=== PATIENT | female | born 1955 | race Caucasian/White ===

== ENCOUNTER 2020-06-15 12:17 | Inpatient (IN) ==
--- NOTE | 2020-06-15 12:49 | RAD ---
HISTORYCOVID +STUDYCHEST, PA/LAT ADULTCOMPARISONNoneTECHNIQUE2 views of the chestFINDINGSCardiac and mediastinal contours are within normal limits. Moderate bilateral hazy and interstitial pulmonary opacities. No definite pleural effusion or pneumothorax.IMPRESSIONBilateral hazy and interstitial pulmonary opacities consistent with COVID 19.Electronically signed by: Ryan Nichols (Jun 15, 2020 12:47:59)
[2020-06-15] MEDS ORDERED: REMDESIVIR 200 MG in NS 250 ML IV 250 ML IV ONE (14:02)
[2020-06-15 14:42] VITALS: BMI 35.5
[2020-06-15 14:48] LABS: BASOPHILS % (AUTO) 0.1 % (0.2-1.0); HEMATOCRIT 41.2 % (36.0-47.0); HEMOGLOBIN 13.8 g/dL (12.0-16.0); LYMPHOCYTES # (AUTO) 1.1 X10^3/uL (1.3-2.9); MEAN CORPUSCULAR HEMOGLOBIN 28.5 pg (27.0-34.0); MEAN CORPUSCULAR HGB CONC 33.5 g/dL (33.0-35.0); MEAN CORPUSCULAR VOLUME 84.9 fL (80.0-100.0); MEAN PLATELET VOLUME 10.1 fL (7.4-11.0); MONOCYTES # (AUTO) 0.4 x10^3/uL (0.3-0.8); MONOCYTES % (AUTO) 7.7 % (0.0-13.0); NEUTROPHILS # (AUTO) 3.7 x10^3/uL (2.2-4.8); NEUTROPHILS % (AUTO) 71.2 % (42.0-75.0); PLATELET COUNT 129 X10^3/uL (150.0-450.0); RED BLOOD COUNT 4.85 X10^6/uL (3.5-5.4); RED CELL DISTRIBUTION WIDTH 13.5 % (11.6-16.5); WHITE BLOOD COUNT 5.1 X10^3/uL (3.6-10.0)
[2020-06-15 14:58] LABS: ABG BASE EXCESS 0.3 mmol/L (-2.0-2.0); ABG HCO3 22.9 mmol/L (22-26)
[2020-06-15 15:00] LABS: ALANINE AMINOTRANSFERASE 53 Units/L (12-78); ALBUMIN 3.2 g/dL (3.4-5.0); ALKALINE PHOSPHATASE 78 Units/L (46-116); ASPARTATE AMINO TRANSFERASE 60 Units/L (15-37); BLOOD UREA NITROGEN 9 mg/dL (7-18); CALCIUM 9.2 mg/dL (8.5-10.1); CHLORIDE 100 mmol/L (98-107); COR CA(FOR HYPOALB) 9.8 mg/dL (8.5-10.1); COR NA(FOR HYPERGLY) 135 mmol/L (136-145); CREATININE 0.84 mg/dL (0.55-1.02); SODIUM 135 mmol/L (136-145); TROPONIN I < 0.02 ng/mL (0-1.5); eGFR NON BLACK RACES > 60 (>60)
[2020-06-15] MEDS ORDERED: PHARMACY CONSULT - IVERMECTIN XX SCH (15:00)
[2020-06-15 15:22] LABS: PLATELET MORPHOLOGY COMMENT NORMAL (NORMAL)
[2020-06-15] MEDS ORDERED: BENADRYL CAP/TAB 25 MG PO ONE (15:30)
[2020-06-15] MEDS: NS 1000 ML 1,000 ML IV SCH (15:55)
[2020-06-15] MEDS: TRICOR TAB 160 MG PO SCH (15:55)
[2020-06-15] MEDS: ASCORBIC ACID INJ MULTI-DOSE VIAL 1,500 MG in NS 100 ML IV 100 ML IV SCH ×2 (15:55→23:06)
[2020-06-15] MEDS: SOLU-Medrol 125 MG VIAL IVP SCH ×2 (15:55→23:07)
[2020-06-15] MEDS: VITAMIN D3 125 mcg (5,000 UNITS) PO SCH (15:55)
--- NOTE | 2020-06-15 16:28 | DR.H&P ---
H&P History & Physical for Day of: H&P Date: 06/15/20 Chief Complaint Chief Complaint: Shortness of breath Generalized weakness, fever, loss of appetite Allergies Allergies Allergy/AdvReac Type Severity Reaction Status Date / Time MS Iodide [Iodide] Allergy Mild Verified 06/15/20 16:57 MS Iodine [Iodine] Allergy Verified 06/15/20 16:14 History of Present Illness History of Present Illness: Pt is a 64 year old female with no past medical history admitted directly from clinic for COVID-19 pneumonia, hypoxia, and dehydration. Pt states that symptoms started last and progressively worsened over the weekend. Pt reports cough, tired, fatigued, headaches, no appetite, chills fever, and body aches. She has been so fatigued has been in the bed and has had very little to eat but has tried to hydrate with OTC Bio Lyte, Sprite, clear fluids, but has had very little solid food and no appetite. Labs/imaging:COVID-19 positive, Wbc 5.1, Hgb 13.8, Plt 129, Na 135, K 3.3, Cr 0.84, Glucose 117, AST 60, ALT 53, ALKP 78, CRP 90, D-dimer 0.70, Troponin nega tive, EKG: Sinus tachycardia ,ABG:PH 7.49, PC02 30, P02 62, HC03 22, 02 SAT 93, FI02 21%. Will start patient on treatment course includes: Remdesivir, Solumedrol 80mg q8h, Bronchodilators, immune supporting supplements, supplemental O2, I/S, Respiratory therapy consult, Pneumonia protocol. Pt requir ing 2L nasal cannula supplemental oxygen. Elevated d-dimer, will get CTA chest to evaluate for pulmonary embolism. Time spent on clinical assessment, reviewing labs and imaging, decision making, and documentation greater than 75 minutes. Past Medical History Past Medical History: GERD, Kidney Stones and PUD Past Surgical History Surgical History: Cholecystectomy, Hysterectomy and Other Family History Family Medical History: Diabetes Mellitus and Heart Failure Social History Does patient currently use any type of tobacco product: No Have you used tobacco products in the last 12 months: No Type of Tobacco Use: None Alcohol Use: None Medications Home Medications: MS Iodide [Iodide] Allergy (Unknown, Verified 06/15/20 16:14) MS Iodine [Iodine] Allergy (Verified 06/15/20 16:14) CONTINUE taking the following medications NK 06/15/20 [History] Labs Result Diagrams: 06/16/20 04:15 06/16/20 04:15 Labs: Laboratory WBC 5.1 X10^3/uL (3.6-10.0) 06/15/20 14:28 RBC 4.85 X10^6/uL (3.5-5.4) 06/15/20 14:28 Hgb 13.8 g/dL (12.0-16.0) 06/15/20 14:28 Hct 41.2 % (36.0-47.0) 06/15/20 14:28 MCV 84.9 fL (80.0-100.0) 06/15/20 14: MCH 28.5 pg (27.0-34.0) 06/15/20 14: MCHC 33.5 g/dL (33.0-35.0) 06/15/20 14: RDW 13.5 % (11.6-16.5) 06/15/20 14:28 Plt Count 129 X10^3/uL (150.0-450.0) L 06/15/20 14:28 Plt Count Comment Decreased (ADEQUATE) A 06/15/20 14: MPV 10.1 fL (7.4-11.0) 06/15/20 14:28 Neut % (Auto) 71.2 % (42.0-75.0) 06/15/20 14: Lymph % (Auto) 21.0 % (21.0-51.0) 06/15/20 14:28 [place] % (Auto) 7.7 % (0.0-13.0) 06/15/20 14:28 Eos % (Auto) 0.0 % (0.9-2.9) L 06/15/20 14:28 Baso % (Auto) 0.1 % (0.2-1.0) L 06/15/20 14:28 Neut # (Auto) 3.7 x10^3/uL (2.2-4.8) 06/15/20 14:28 Lymph # (Auto) 1.1 X10^3/uL (1.3-2.9) L 06/15/20 14:28 [place] # (Auto) 0.4 x10^3/uL (0.3-0.8) 06/15/20 14:28 Eos # (Auto) 0.0 x10^3/uL (0.0-0.2) 06/15/20 14:28 Baso # (Auto) 0.0 X10^3/uL (0.0-0.1) 06/15/20 14:28 Absolute Nucleated RBC 0.1 /100WBC 06/15/20 14:28 Plt Morphology Comment Normal (NORMAL) 06/15/20 14:28 RBC Morphology Normal (NORMAL) 06/15/20 14:28 D-Dimer 0.70 ug/ml (0.0-0.57) H* 06/15/20 14:28 Sample Site Lb 06/15/20 14:53 ABG pH 7.490 (7.35-7.45) H 06/15/20 14:53 ABG pCO2 30.0 mmHg (35.0-45.0) L 06/15/20 14:53 ABG pO2 62.0 mmHg (80.0-100.0) L 06/15/20 14:53 ABG HCO3 22.9 mmol/L (22-26) 06/15/20 14:53 ABG O2 Saturation 93.0 % (90-100) 06/15/20 14:53 ABG Base Excess 0.3 mmol/L (-2.0-2.0) 06/15/20 14:53 Partha Test Na 06/15/20 14:53 A-a Gradient 50.0 mmHg 06/15/20 14:53 FiO2 21.0 06/15/20 14:53 Blood Gas Comments Dayana well/gmb/ahw 06/15/20 14:53 Sodium 135 mmol/L (136-145) L 06/15/20 14:28 Corrected Sodium 135 mmol/L (136-145) L 06/15/20 14:28 Potassium 3.3 mmol/L (3.5-5.1) L 06/15/20 14:28 Chloride 100 mmol/L (98-107) 06/15/20 14:28 Carbon Dioxide 25.0 mmol/L (21-32) 06/15/20 14:28 BUN 9 mg/dL (7-18) 06/15/20 14:28 Creatinine 0.84 mg/dL (0.55-1.02) 06/15/20 14:28 Est GFR (MDRD) Af Amer > 60 (>60) 06/15/20 14:28 Est GFR (MDRD) Non-Af > 60 (>60) 06/15/20 14:28 Glucose 117 mg/dL (65-99) H 06/15/20 14:28 Calcium 9.2 mg/dL (8.5-10.1) 06/15/20 14:28 Corrected Calcium 9.8 mg/dL (8.5-10.1) 06/15/20 14:28 Total Bilirubin 0.40 mg/dL (0.2-1.0) 06/15/20 14:28 AST 60 Units/L (15-37) H 06/15/20 14:28 ALT 53 Units/L (12-78) 06/15/20 14:28 Alkaline Phosphatase 78 Units/L (46-116) 06/15/20 14:28 Troponin I < 0.02 ng/mL (0-1.5) 06/15/20 14:28 C-Reactive Protein 90.30 mg/L (0-3.0) H 06/15/20 14:28 Total Protein 8.0 g/dL (6.4-8.2) 06/15/20 14:28 Albumin 3.2 g/dL (3.4-5.0) L 06/15/20 14:28 Globulin 4.8 g/dL (2.5-4.5) H 06/15/20 14:28 Albumin/Globulin Ratio 0.7 Ratio (1.1-2.1) L 06/15/20 14:28 SARS CoV-2 RNA Rapid RENNY Positive (NEGATIVE) A 06/15/20 11:48 Review of Systems Constitutional: Fever, Chills and Weakness Eyes: No Symptoms Reported ENT: No Symptoms Reported Respiratory: Cough and Shortness of Breath Cardiovascular: No Symptoms Reported Gastrointestinal: No Symptoms Reported Genitourinary: No Symptoms Reported Musculoskeletal: No Symptoms Reported Skin: No Symptoms Reported Neurological: No Symptoms Reported Physical Exam Vital Signs: Temperature 98.7 F Pulse Rate [Apical] 99 Pulse Rate 106 Respiratory Rate 28 Blood Pressure [Right Arm] 122/77 Blood Pressure [Left Arm] 128/60 Blood Pressure 124/59 O2 Sat by Pulse Oximetry 92 Oriented: Normal Eyes: Normal Ear: Normal Nose: Normal Throat: Normal Respiratory: Diminished Throughout, RLL Rhonchi and LLL Rhonchi Cardiovascular: Normal : Normal Auscultation: Bowel Sounds: Normal Palpation: Normal Tenderness: Normal Skin: Normal Musculoskeletal: Normal Psychiatric: Normal Mood Description: Calm and Appropriate Affect: Normal Speech Pattern: Clear and Appropriate Assessment/Plan (1) Pneumonia due to COVID-19 virus: Status: Acute Plan: IVF, Remdesivir, Solumedrol, Bronchodilators, supplemental O2. (2) Dehydration: Status: Acute Review H&P Reviewed: Yes Patient was examined?: Yes
[2020-06-15] MEDS ORDERED: NS 100 ML IV 100 ML IV ONE (16:39)
[2020-06-15] MEDS ORDERED: DUONEB 0.5 MG/3 MG (3 mL) NEB ONE (16:51)
[2020-06-15] MEDS: DUONEB 0.5 MG/3 MG (3 mL) NEB SCH (17:04)
[2020-06-15] MEDS ORDERED: MELATONIN PO SCH (21:00)
[2020-06-15] MEDS: PULMICORT NEB TX 0.5 MG NEB SCH (21:21)
[2020-06-15] MEDS: ZINC SULFATE PO SCH (21:40)
[2020-06-15] MEDS: LOVENOX INJ 30 MG SYR SC SCH (21:40)
[2020-06-15] MEDS ORDERED: MELATONIN PO PRN (21:56)
[2020-06-16] MEDS: DUONEB 0.5 MG/3 MG (3 mL) NEB SCH ×4 (00:40→16:30)
[2020-06-16 05:05] LABS: BASOPHILS % (AUTO) 0.1 % (0.2-1.0); LYMPHOCYTES # (AUTO) 0.3 X10^3/uL (1.3-2.9); LYMPHOCYTES % (AUTO) 13.5 % (21.0-51.0); MEAN CORPUSCULAR HEMOGLOBIN 28.3 pg (27.0-34.0); MEAN CORPUSCULAR HGB CONC 33.4 g/dL (33.0-35.0); MEAN CORPUSCULAR VOLUME 84.8 fL (80.0-100.0); MEAN PLATELET VOLUME 10.5 fL (7.4-11.0); MONOCYTES # (AUTO) 0.2 x10^3/uL (0.3-0.8); MONOCYTES % (AUTO) 11.3 % (0.0-13.0); NEUTROPHILS # (AUTO) 1.6 x10^3/uL (2.2-4.8); NEUTROPHILS % (AUTO) 75.1 % (42.0-75.0); PLATELET COUNT 121 X10^3/uL (150.0-450.0); RED BLOOD COUNT 4.59 X10^6/uL (3.5-5.4); RED CELL DISTRIBUTION WIDTH 13.1 % (11.6-16.5); WHITE BLOOD COUNT 2.1 X10^3/uL (3.6-10.0)
[2020-06-16 05:12] LABS: ALANINE AMINOTRANSFERASE 53 Units/L (12-78); ALBUMIN 2.8 g/dL (3.4-5.0); ALKALINE PHOSPHATASE 72 Units/L (46-116); ASPARTATE AMINO TRANSFERASE 57 Units/L (15-37); BLOOD UREA NITROGEN 8 mg/dL (7-18); CALCIUM 8.9 mg/dL (8.5-10.1); CARBON DIOXIDE 22.1 mmol/L (21-32); CHLORIDE 103 mmol/L (98-107); COR CA(FOR HYPOALB) 9.9 mg/dL (8.5-10.1); COR NA(FOR HYPERGLY) 141 mmol/L (136-145); CREATININE 0.83 mg/dL (0.55-1.02); SODIUM 138 mmol/L (136-145); TOTAL PROTEIN 7.6 g/dL (6.4-8.2); eGFR NON BLACK RACES > 60 (>60)
[2020-06-16 05:42] LABS: GIANT PLATELET MODERATE; PLATELET MORPHOLOGY COMMENT ABNORMAL (NORMAL)
[2020-06-16] MEDS: ASCORBIC ACID INJ MULTI-DOSE VIAL 1,500 MG in NS 100 ML IV 100 ML IV SCH ×4 (06:35→21:41)
[2020-06-16] MEDS: SOLU-Medrol 125 MG VIAL IVP SCH ×3 (06:35→21:39)
[2020-06-16] MEDS: PULMICORT NEB TX 0.5 MG NEB SCH ×2 (08:05→20:10)
[2020-06-16] MEDS ORDERED: POTASSIUM CHL 60 MEQ/NS 0.45% 500 ML IV PRN (08:25)
[2020-06-16] MEDS ORDERED: MICRO K EXTEN CAP 10 MEQ PO PRN (08:25)
[2020-06-16] MEDS ORDERED: POTASSIUM CHLORIDE LIQ 20 MEQ UDC PO PRN (08:25)
[2020-06-16] MEDS ORDERED: POTASSIUM CHL 40 MEQ/NS 0.45% 500 ML IV PRN (08:25)
[2020-06-16] MEDS ORDERED: K-RIDER 10 MEQ/NS 100 ML 10 MEQ/100 ML BAG IV PRN (08:25)
[2020-06-16] MEDS ORDERED: KLOR-CON PO PRN (08:25)
[2020-06-16] MEDS: VITAMIN D3 125 mcg (5,000 UNITS) PO SCH (08:55)
[2020-06-16] MEDS: TRICOR TAB 160 MG PO SCH (08:55)
[2020-06-16] MEDS: LOVENOX INJ 30 MG SYR SC SCH ×2 (08:55→21:42)
[2020-06-16] MEDS: K-DUR TAB 20 MEQ PO PRN ×2 (08:55→21:45)
[2020-06-16] MEDS: ZINC SULFATE PO SCH ×2 (08:55→21:45)
[2020-06-16] MEDS ORDERED: TRICOR TAB 160 MG PO SCH (09:00)
[2020-06-16] MEDS: IVERMECTIN PO SCH (09:04)
--- NOTE | 2020-06-16 10:12 | PCM.PROG ---
Progress Note Progress Note for Day of Date of Exam: 06/16/20 Subjective Subjective: Pt is a 64 year old female with no past medical history admitted for COVID-19 pneumonia (positive 06/15) and hypoxia. This morning patient reports some improvement in appetite, she is sitting on bed eating breakfast. Labs/imaging: Wbc 2.1, Hgb 13, Plt 121, Na 141, K 3.3, Cr 0.83, Glucose 212, AST 57, ALT 53, ALKP 72, CRP 90>84, Treatment course includes: Remdesivir, Solumedrol 80mg q8h, Tricor, Bronchodilators, immune supporting supplements, supplemental O2, I/S, Respiratory therapy consult, Pneumonia protocol. Pt is requiring 2L nasal cannula supplemental oxygen. Overnight patient lost IV access and difficulty obtaining access. Will get PICC line placed today and is still scheduled to get CTA chest to evaluate for pulmonary embolism due to hypoxia and elevated D-dimer. Hypokalemia on labs, will replete per protocol. Otherwise continue current plan of care. Monitor and follow up labs/imaging in the morning. Past Medical Family Social History Past Med/Fam/Surg Hx: No changes since H&P Allergies: Allergies MS Iodide [Iodide] Allergy (Mild, Verified 06/15/20 16:57) MS Iodine [Iodine] Allergy (Verified 06/15/20 16:14) Review of Systems ROS: No change since H&P Vital Signs and I&O's Vital Signs: Temperature 98.4 F Pulse Rate [Apical] 106 Pulse Rate 89 Respiratory Rate 32 Blood Pressure [Right Arm] 124/70 Blood Pressure [Left Arm] 108/64 Blood Pressure 124/59 O2 Sat by Pulse Oximetry 90 Intake and Output: Intake & Output 06/13/20 06/14/20 06/15/20 06/16/20 23:59 23:59 23:59 23:59 Intake Total 963 / 963 310 / 310 Balance 963 / 963 310 / 310 Physical Exam Oriented: Normal Eyes: Normal Ear: Normal Nose: Normal Throat: Normal Respiratory: Diminished Cardiovascular: Normal : Normal Auscultation: Bowel Sounds: Normal Tenderness: Normal Skin: Normal Musculoskeletal: Normal Psychiatric: Normal Mood Description: Calm and Appropriate Affect: Normal Speech Pattern: Clear and Appropriate Laboratory and Diagnostics Result Diagrams: 06/16/20 04:15 06/16/20 04:15 Labs: Laboratory WBC 2.1 X10^3/uL (3.6-10.0) L 06/16/20 04:15 RBC 4.59 X10^6/uL (3.5-5.4) 06/16/20 04:15 Hgb 13.0 g/dL (12.0-16.0) 06/16/20 04:15 Hct 39.0 % (36.0-47.0) 06/16/20 04:15 MCV 84.8 fL (80.0-100.0) 06/16/20 04:15 MCH 28.3 pg (27.0-34.0) 06/16/20 04:15 MCHC 33.4 g/dL (33.0-35.0) 06/16/20 04:15 RDW 13.1 % (11.6-16.5) 06/16/20 04:15 Plt Count 121 X10^3/uL (150.0-450.0) L 06/16/20 04:15 Plt Count Comment Decreased (ADEQUATE) A 06/16/20 04:15 MPV 10.5 fL (7.4-11.0) 06/16/20 04:15 Neut % (Auto) 75.1 % (42.0-75.0) H 06/16/20 04:15 Lymph % (Auto) 13.5 % (21.0-51.0) L 06/16/20 04:15 [place] % (Auto) 11.3 % (0.0-13.0) 06/16/20 04:15 Eos % (Auto) 0.0 % (0.9-2.9) L 06/16/20 04:15 Baso % (Auto) 0.1 % (0.2-1.0) L 06/16/20 04:15 Neut # (Auto) 1.6 x10^3/uL (2.2-4.8) L 06/16/20 04:15 Lymph # (Auto) 0.3 X10^3/uL (1.3-2.9) L 06/16/20 04:15 [place] # (Auto) 0.2 x10^3/uL (0.3-0.8) L 06/16/20 04:15 Eos # (Auto) 0.0 x10^3/uL (0.0-0.2) 06/16/20 04:15 Baso # (Auto) 0.0 X10^3/uL (0.0-0.1) 06/16/20 04:15 Absolute Nucleated RBC 0.1 /100WBC 06/16/20 04:15 Total Counted 50 06/16/20 04:15 Neutrophils % (Manual) 42 % (39-76) 06/16/20 04:15 Lymphocytes % (Manual) 4 % (13-43) L 06/16/20 04:15 Monocytes % (Manual) 4 % (4-9) 06/16/20 04:15 Giant Platelets Moderate 06/16/20 04:15 Plt Morphology Comment Abnormal (NORMAL) A 06/16/20 04:15 RBC Morphology Normal (NORMAL) 06/16/20 04:15 D-Dimer 0.70 ug/ml (0.0-0.57) H* 06/15/20 14:28 Sample Site Lb 06/15/20 14:53 ABG pH 7.490 (7.35-7.45) H 06/15/20 14:53 ABG pCO2 30.0 mmHg (35.0-45.0) L 06/15/20 14:53 ABG pO2 62.0 mmHg (80.0-100.0) L 06/15/20 14:53 ABG HCO3 22.9 mmol/L (22-26) 06/15/20 14:53 ABG O2 Saturation 93.0 % (90-100) 06/15/20 14:53 ABG Base Excess 0.3 mmol/L (-2.0-2.0) 06/15/20 14:53 Partha Test Na 06/15/20 14:53 A-a Gradient 50.0 mmHg 06/15/20 14:53 FiO2 21.0 06/15/20 14:53 Blood Gas Comments Dayana well/gmb/ahw 06/15/20 14:53 Sodium 138 mmol/L (136-145) 06/16/20 04:15 Corrected Sodium 141 mmol/L (136-145) 06/16/20 04:15 Potassium 3.3 mmol/L (3.5-5.1) L 06/16/20 04:15 Chloride 103 mmol/L (98-107) 06/16/20 04:15 Carbon Dioxide 22.1 mmol/L (21-32) 06/16/20 04:15 BUN 8 mg/dL (7-18) 06/16/20 04:15 Creatinine 0.83 mg/dL (0.55-1.02) 06/16/20 04:15 Est GFR (MDRD) Af Amer > 60 (>60) 06/16/20 04:15 Est GFR (MDRD) Non-Af > 60 (>60) 06/16/20 04:15 Glucose 212 mg/dL (65-99) H 06/16/20 04:15 Calcium 8.9 mg/dL (8.5-10.1) 06/16/20 04:15 Corrected Calcium 9.9 mg/dL (8.5-10.1) 06/16/20 04:15 Magnesium 2.0 mg/dL (1.7-2.9) 06/16/20 04:15 Total Bilirubin 0.30 mg/dL (0.2-1.0) 06/16/20 04:15 AST 57 Units/L (15-37) H 06/16/20 04:15 ALT 53 Units/L (12-78) 06/16/20 04:15 Alkaline Phosphatase 72 Units/L (46-116) 06/16/20 04:15 Troponin I < 0.02 ng/mL (0-1.5) 06/15/20 14:28 C-Reactive Protein 84.40 mg/L (0-3.0) H 06/16/20 04:15 Total Protein 7.6 g/dL (6.4-8.2) 06/16/20 04:15 Albumin 2.8 g/dL (3.4-5.0) L 06/16/20 04:15 Globulin 4.8 g/dL (2.5-4.5) H 06/16/20 04:15 Albumin/Globulin Ratio 0.6 Ratio (1.1-2.1) L 06/16/20 04:15 SARS CoV-2 RNA Rapid RENNY Positive (NEGATIVE) A 06/15/20 11:48 Plan (1) Pneumonia due to COVID-19 virus: Status: Acute Plan: IVF, Remdesivir, Solumedrol, Bronchodilators, supplemental O2. (2) Dehydration: Status: Acute
[2020-06-16] MEDS ORDERED: ATIVAN TAB 0.5 MG PO PRN (10:38)
[2020-06-16] MEDS ORDERED: VERSED ONE (11:00)
[2020-06-16] MEDS ORDERED: VERSED IM ONE (11:04)
[2020-06-16] MEDS ORDERED: XYLOCAINE 1 % (PLAIN) ONE (11:26)
[2020-06-16] MEDS ORDERED: BENADRYL INJ 50 MG VIAL ONE (12:00)
[2020-06-16] MEDS ORDERED: BENADRYL INJ 50 MG VIAL IVP ONE (12:04)
--- NOTE | 2020-06-16 12:15 | RAD ---
HISTORYCENTRAL LINE PLACEMENTSTUDYCHEST, 1 [id number]/2021FINDINGSRight jugular central venous catheter is in the expected location of the superior vena cava.No pneumothorax is present. Abnormal opacity in the lungs could be pneumonia, unchanged from yesterday.Heart size is normal.Bones are unremarkable.EKG leads are noted.IMPRESSION1. Uncomplicated line placementElectronically signed by: López Smith (Jun 16, 2020 12:14:17)
--- NOTE | 2020-06-16 12:48 | CT ---
HISTORYELEVATED D-DIMERSTUDYCTA CHESTCOMPARISONChest radiograph from same day.TECHNIQUECTA chest protocol with axial images from the thoracic inlet to upper abdomen with IV contrast. Sagittal and coronal reformats and MIP images were created. Automated exposure control was utilized.FINDINGSSubcentimeter low-attenuation right thyroid nodule. Mildly atherosclerotic normal caliber thoracic aorta. Pulmonary artery is normal in caliber centrally. No filling defect is identified to suggest pulmonary embolism. The heart is normal in size. No pericardial effusion. Mild coronary artery disease. No pathologic adenopathy in the thorax. Right IJ central line terminates in the SVC. Post cholecystectomy. Hepatic steatosis. No acute osseous abnormality. Trachea and mainstem bronchi appear patent. Moderate bilateral ground-glass and interstitial opacities throughout both lungs. No pleural effusion or pneumothorax.IMPRESSIONNegative for PE.Moderate ground-glass and interstitial opacities throughout both lungs consistent with COVID 19 pneumonia.Electronically signed by: Ryan Nichols (Jun 16, 2020 12:46:36)
[2020-06-16] MEDS: REMDESIVIR 100 MG in NS 250 ML IV 250 ML IV SCH (13:07)
[2020-06-16] MEDS: VIBRAMYCIN PO SCH ×2 (13:07→21:44)
[2020-06-16] MEDS: NS 1000 ML 1,000 ML IV SCH (17:28)
[2020-06-17] MEDS: DUONEB 0.5 MG/3 MG (3 mL) NEB SCH ×5 (00:15→16:25)
[2020-06-17] MEDS: ASCORBIC ACID INJ MULTI-DOSE VIAL 1,500 MG in NS 100 ML IV 100 ML IV SCH ×4 (04:03→21:00)
[2020-06-17 05:20] LABS: BASOPHILS # (AUTO) 0.1 X10^3/uL (0.0-0.1); BASOPHILS % (AUTO) 1.4 % (0.2-1.0); EOSINOPHILS % (AUTO) 0.2 % (0.9-2.9); HEMATOCRIT 36.6 % (36.0-47.0); HEMOGLOBIN 12.2 g/dL (12.0-16.0); LYMPHOCYTES # (AUTO) 0.2 X10^3/uL (1.3-2.9); LYMPHOCYTES % (AUTO) 4.4 % (21.0-51.0); MEAN CORPUSCULAR HEMOGLOBIN 28.4 pg (27.0-34.0); MEAN CORPUSCULAR HGB CONC 33.4 g/dL (33.0-35.0); MEAN CORPUSCULAR VOLUME 85.1 fL (80.0-100.0); MEAN PLATELET VOLUME 10.5 fL (7.4-11.0); MONOCYTES # (AUTO) 0.2 x10^3/uL (0.3-0.8); MONOCYTES % (AUTO) 5.5 % (0.0-13.0); NEUTROPHILS # (AUTO) 3.7 x10^3/uL (2.2-4.8); NEUTROPHILS % (AUTO) 88.5 % (42.0-75.0); PLATELET COUNT 136 X10^3/uL (150.0-450.0); RED BLOOD COUNT 4.31 X10^6/uL (3.5-5.4); RED CELL DISTRIBUTION WIDTH 13.3 % (11.6-16.5); WHITE BLOOD COUNT 4.2 X10^3/uL (3.6-10.0)
[2020-06-17 05:28] LABS: ALANINE AMINOTRANSFERASE 49 Units/L (12-78); ALBUMIN 2.6 g/dL (3.4-5.0); ALKALINE PHOSPHATASE 64 Units/L (46-116); ASPARTATE AMINO TRANSFERASE 40 Units/L (15-37); BLOOD UREA NITROGEN 13 mg/dL (7-18); CALCIUM 8.8 mg/dL (8.5-10.1); CARBON DIOXIDE 21.2 mmol/L (21-32); CHLORIDE 108 mmol/L (98-107); COR CA(FOR HYPOALB) 9.9 mg/dL (8.5-10.1); COR NA(FOR HYPERGLY) 146 mmol/L (136-145); CREATININE 0.89 mg/dL (0.55-1.02); SODIUM 143 mmol/L (136-145); TOTAL PROTEIN 6.7 g/dL (6.4-8.2); eGFR NON BLACK RACES > 60 (>60)
[2020-06-17 05:38] LABS: GIANT PLATELET FEW; PLATELET MORPHOLOGY COMMENT ABNORMAL (NORMAL)
[2020-06-17] MEDS: SOLU-Medrol 125 MG VIAL IVP SCH ×3 (06:15→21:00)
[2020-06-17] MEDS: PULMICORT NEB TX 0.5 MG NEB SCH ×2 (07:45→21:21)
[2020-06-17] MEDS: LOVENOX INJ 30 MG SYR SC SCH ×2 (08:12→21:00)
[2020-06-17] MEDS: IVERMECTIN PO SCH (08:12)
[2020-06-17] MEDS: REMDESIVIR 100 MG in NS 250 ML IV 250 ML IV SCH (08:12)
[2020-06-17] MEDS: TRICOR TAB 160 MG PO SCH (08:13)
[2020-06-17] MEDS ORDERED: VITAMIN D3 125 mcg (5,000 UNITS) PO SCH (09:00)
[2020-06-17] MEDS: VIBRAMYCIN PO SCH ×2 (09:19→21:00)
[2020-06-17] MEDS: VITAMIN A PO SCH (09:19)
[2020-06-17] MEDS: ZINC SULFATE PO SCH ×2 (09:20→21:00)
[2020-06-17] MEDS: VITAMIN D3 125 mcg (5,000 UNITS) PO SCH (09:20)
--- NOTE | 2020-06-17 13:30 | PCM.PROG ---
Progress Note Progress Note for Day of Date of Exam: 06/17/20 Subjective Subjective: Pt is a 64 year old female with no past medical history admitted for COVID-19 pneumonia (positive 06/15) and hypoxia. This morning patient reports some improvement in appetite and strength, no worsening respiratory symptoms. Labs/imaging: Wbc 4.2, Hgb 12.2, Plt 136, Na 146, K 3.7, Cr 0.89, Glucose 212, AST 40, ALT 49, ALKP 64, CRP 31, CT chest: Negative for PE. Moderate ground- glass and interstitial opacities throughout both lungs consistent with COVID 19 pneumonia. Treatment course includes: Remdesivir, Solumedrol 80mg q8h, Antibiotics: Doxycycline, Tricor, Bronchodilators, immune supporting supplements, supplemental O2, I/S, Respiratory therapy consult, Pneumonia protocol. Pt is on 2L nasal cannula supplemental oxygen. She has central line placement due to difficulty with IV access. Continue current plan of care. Monitor and follow up labs/imaging in the morning. Past Medical Family Social History Past Med/Fam/Surg Hx: No changes since H&P Allergies: Allergies iodine Adverse Reaction (Verified 06/16/20 20:24) Review of Systems ROS: No change since H&P Vital Signs and I&O's Vital Signs: Temperature 98.0 F Pulse Rate [Apical] 102 Pulse Rate 103 Respiratory Rate 22 Blood Pressure [Right Arm] 133/69 Blood Pressure [Left Arm] 127/65 Blood Pressure 124/59 O2 Sat by Pulse Oximetry 91 Intake and Output: Intake & Output 06/14/20 06/15/20 06/16/20 06/17/20 23:59 23:59 23:59 23:59 Intake Total 963 / 963 2522 / 2522 1540 / 1540 Balance 963 / 963 2522 / 2522 1540 / 1540 Physical Exam Oriented: Normal Eyes: Normal Ear: Normal Nose: Normal Throat: Normal Respiratory: Diminished Cardiovascular: Normal : Normal Auscultation: Bowel Sounds: Normal Tenderness: Normal Skin: Normal Musculoskeletal: Normal Psychiatric: Normal Mood Description: Calm and Appropriate Affect: Normal Speech Pattern: Clear and Appropriate Laboratory and Diagnostics Result Diagrams: 06/17/20 04:15 06/17/20 04:15 Labs: Laboratory WBC 4.2 X10^3/uL (3.6-10.0) 06/17/20 04:15 RBC 4.31 X10^6/uL (3.5-5.4) 06/17/20 04:15 Hgb 12.2 g/dL (12.0-16.0) 06/17/20 04:15 Hct 36.6 % (36.0-47.0) 06/17/20 04:15 MCV 85.1 fL (80.0-100.0) 06/17/20 04:15 MCH 28.4 pg (27.0-34.0) 06/17/20 04:15 MCHC 33.4 g/dL (33.0-35.0) 06/17/20 04:15 RDW 13.3 % (11.6-16.5) 06/17/20 04:15 Plt Count 136 X10^3/uL (150.0-450.0) L 06/17/20 04:15 Plt Count Comment Decreased (ADEQUATE) A 06/17/20 04:15 MPV 10.5 fL (7.4-11.0) 06/17/20 04:15 Neut % (Auto) 88.5 % (42.0-75.0) H 06/17/20 04:15 Lymph % (Auto) 4.4 % (21.0-51.0) L 06/17/20 04:15 [place] % (Auto) 5.5 % (0.0-13.0) 06/17/20 04:15 Eos % (Auto) 0.2 % (0.9-2.9) L 06/17/20 04:15 Baso % (Auto) 1.4 % (0.2-1.0) H 06/17/20 04:15 Neut # (Auto) 3.7 x10^3/uL (2.2-4.8) 06/17/20 04:15 Lymph # (Auto) 0.2 X10^3/uL (1.3-2.9) L 06/17/20 04:15 [place] # (Auto) 0.2 x10^3/uL (0.3-0.8) L 06/17/20 04:15 Eos # (Auto) 0.0 x10^3/uL (0.0-0.2) 06/17/20 04:15 Baso # (Auto) 0.1 X10^3/uL (0.0-0.1) 06/17/20 04:15 Absolute Nucleated RBC 0.0 /100WBC 06/17/20 04:15 Total Counted 50 06/16/20 04:15 Neutrophils % (Manual) 84 % (39-76) H 06/16/20 04:15 Lymphocytes % (Manual) 8 % (13-43) L 06/16/20 04:15 Monocytes % (Manual) 8 % (4-9) 06/16/20 04:15 Giant Platelets Few 06/17/20 04:15 Plt Morphology Comment Abnormal (NORMAL) A 06/17/20 04:15 RBC Morphology Normal (NORMAL) 06/17/20 04:15 D-Dimer 0.86 ug/ml (0.0-0.57) H* 06/17/20 04:15 Sample Site Lb 06/15/20 14:53 ABG pH 7.490 (7.35-7.45) H 06/15/20 14:53 ABG pCO2 30.0 mmHg (35.0-45.0) L 06/15/20 14:53 ABG pO2 62.0 mmHg (80.0-100.0) L 06/15/20 14:53 ABG HCO3 22.9 mmol/L (22-26) 06/15/20 14:53 ABG O2 Saturation 93.0 % (90-100) 06/15/20 14:53 ABG Base Excess 0.3 mmol/L (-2.0-2.0) 06/15/20 14:53 Partha Test Na 06/15/20 14:53 A-a Gradient 50.0 mmHg 06/15/20 14:53 FiO2 21.0 06/15/20 14:53 Blood Gas Comments Dayana well/gmb/ahw 06/15/20 14:53 Sodium 143 mmol/L (136-145) 06/17/20 04:15 Corrected Sodium 146 mmol/L (136-145) H 06/17/20 04:15 Potassium 3.7 mmol/L (3.5-5.1) 06/17/20 04:15 Chloride 108 mmol/L (98-107) H 06/17/20 04:15 Carbon Dioxide 21.2 mmol/L (21-32) 06/17/20 04:15 BUN 13 mg/dL (7-18) 06/17/20 04:15 Creatinine 0.89 mg/dL (0.55-1.02) 06/17/20 04:15 Est GFR (MDRD) Af Amer > 60 (>60) 06/17/20 04:15 Est GFR (MDRD) Non-Af > 60 (>60) 06/17/20 04:15 Glucose 212 mg/dL (65-99) H 06/17/20 04:15 Calcium 8.8 mg/dL (8.5-10.1) 06/17/20 04:15 Corrected Calcium 9.9 mg/dL (8.5-10.1) 06/17/20 04:15 Magnesium 2.0 mg/dL (1.7-2.9) 06/16/20 04:15 Total Bilirubin 0.30 mg/dL (0.2-1.0) 06/17/20 04:15 AST 40 Units/L (15-37) H 06/17/20 04:15 ALT 49 Units/L (12-78) 06/17/20 04:15 Alkaline Phosphatase 64 Units/L (46-116) 06/17/20 04:15 Troponin I < 0.02 ng/mL (0-1.5) 06/15/20 14:28 C-Reactive Protein 31.30 mg/L (0-3.0) H 06/17/20 04:15 Total Protein 6.7 g/dL (6.4-8.2) 06/17/20 04:15 Albumin 2.6 g/dL (3.4-5.0) L 06/17/20 04:15 Globulin 4.1 g/dL (2.5-4.5) 06/17/20 04:15 Albumin/Globulin Ratio 0.6 Ratio (1.1-2.1) L 06/17/20 04:15 SARS CoV-2 RNA Rapid RENNY Positive (NEGATIVE) A 06/15/20 11:48 Plan (1) Pneumonia due to COVID-19 virus: Status: Acute Plan: IVF, Remdesivir, Solumedrol, Bronchodilators, Antibiotics, supplemental O2. (2) Dehydration: Status: Acute
[2020-06-17] MEDS: NS 1000 ML 1,000 ML IV SCH (14:36)
[2020-06-18] MEDS: DUONEB 0.5 MG/3 MG (3 mL) NEB SCH ×4 (00:30→18:07)
[2020-06-18] MEDS: ASCORBIC ACID INJ MULTI-DOSE VIAL 1,500 MG in NS 100 ML IV 100 ML IV SCH ×4 (04:33→20:44)
[2020-06-18 05:15] LABS: BASOPHILS % (AUTO) 0.1 % (0.2-1.0); HEMATOCRIT 36.1 % (36.0-47.0); HEMOGLOBIN 11.7 g/dL (12.0-16.0); LYMPHOCYTES # (AUTO) 0.4 X10^3/uL (1.3-2.9); LYMPHOCYTES % (AUTO) 5.8 % (21.0-51.0); MEAN CORPUSCULAR HEMOGLOBIN 27.7 pg (27.0-34.0); MEAN CORPUSCULAR HGB CONC 32.5 g/dL (33.0-35.0); MEAN CORPUSCULAR VOLUME 85.2 fL (80.0-100.0); MEAN PLATELET VOLUME 10.8 fL (7.4-11.0); MONOCYTES # (AUTO) 0.5 x10^3/uL (0.3-0.8); MONOCYTES % (AUTO) 7.4 % (0.0-13.0); NEUTROPHILS # (AUTO) 5.7 x10^3/uL (2.2-4.8); NEUTROPHILS % (AUTO) 86.7 % (42.0-75.0); PLATELET COUNT 161 X10^3/uL (150.0-450.0); RED BLOOD COUNT 4.23 X10^6/uL (3.5-5.4); RED CELL DISTRIBUTION WIDTH 13.5 % (11.6-16.5); WHITE BLOOD COUNT 6.6 X10^3/uL (3.6-10.0)
[2020-06-18 05:27] LABS: ALANINE AMINOTRANSFERASE 45 Units/L (12-78); ALBUMIN 2.5 g/dL (3.4-5.0); ALKALINE PHOSPHATASE 61 Units/L (46-116); ASPARTATE AMINO TRANSFERASE 29 Units/L (15-37); BLOOD UREA NITROGEN 15 mg/dL (7-18); CALCIUM 8.8 mg/dL (8.5-10.1); CARBON DIOXIDE 24.2 mmol/L (21-32); CHLORIDE 105 mmol/L (98-107); COR NA(FOR HYPERGLY) 143 mmol/L (136-145); CREATININE 0.81 mg/dL (0.55-1.02); SODIUM 140 mmol/L (136-145); TOTAL PROTEIN 6.2 g/dL (6.4-8.2); eGFR NON BLACK RACES > 60 (>60)
[2020-06-18] MEDS: SOLU-Medrol 125 MG VIAL IVP SCH ×3 (05:40→20:45)
[2020-06-18 06:02] LABS: GIANT PLATELET FEW; PLATELET MORPHOLOGY COMMENT ABNORMAL (NORMAL)
[2020-06-18] MEDS: K-DUR TAB 20 MEQ PO PRN (07:00)
--- NOTE | 2020-06-18 07:10 | RAD ---
HISTORYCOVID PNEUMONIASTUDYCHEST, 1 [id number]/2021.TECHNIQUEAP view of the chestFINDINGSRight IJ central line in good position. Cardiac silhouette is borderline in size. No significant change in bilateral airspace and interstitial opacities. No definite pleural effusion or pneumothorax. Soft tissue attenuation limits evaluation.IMPRESSIONNo significant change in pneumonia.Electronically signed by: Ryan Nichols (Jun 18, 2020 07:08:32)
[2020-06-18] MEDS: PULMICORT NEB TX 0.5 MG NEB SCH ×2 (09:07→20:51)
[2020-06-18] MEDS: IVERMECTIN PO SCH (09:53)
[2020-06-18] MEDS: REMDESIVIR 100 MG in NS 250 ML IV 250 ML IV SCH (09:53)
[2020-06-18] MEDS: VITAMIN D3 125 mcg (5,000 UNITS) PO SCH (09:54)
[2020-06-18] MEDS: ZINC SULFATE PO SCH ×2 (09:54→20:45)
[2020-06-18] MEDS: VIBRAMYCIN PO SCH ×2 (09:55→20:45)
[2020-06-18] MEDS: TRICOR TAB 160 MG PO SCH (09:55)
[2020-06-18] MEDS: VITAMIN A PO SCH (09:56)
[2020-06-18] MEDS: LOVENOX INJ 30 MG SYR SC SCH ×2 (09:56→20:44)
--- NOTE | 2020-06-18 10:10 | PCM.PROG ---
Progress Note Progress Note for Day of Date of Exam: 06/18/20 Subjective Subjective: Pt is a 64 year old female with no past medical history admitted for COVID-19 pneumonia (positive 06/15) and hypoxia. Pt reports improvement in her symptoms this morning and is sitting on side of bed eating breakfast. She is currently on 2L nasal cannula supplemental oxygen. Labs/imaging: Wbc 6.6, Hgb 11.7, Plt 161, Na 143, K 3.4, Cr 0.81, Glucose 235, CRP 31>13, CXR: No significant change in pneumonia. Treatment course includes: Remdesivir, Solumedrol 80mg q8h, Antibiotics: Doxycycline, Tricor, Bronchodilators, immune supporting supplements, supplemental O2, I/S, Respiratory therapy consult, Pneumonia protocol. Wean oxygen as tolerated, decrease solumedrol to 60mg q12h. Pt has central line placement due to difficulty with IV access. Otherwise, continue current plan of care. Monitor and follow up labs/imaging in the morning. Past Medical Family Social History Past Med/Fam/Surg Hx: No changes since H&P Allergies: Allergies iodine Adverse Reaction (Verified 06/16/20 20:24) Review of Systems ROS: No change since H&P Vital Signs and I&O's Vital Signs: Temperature 97.7 F Pulse Rate [Apical] 116 Pulse Rate 96 Respiratory Rate 38 Blood Pressure [Right Arm] 163/76 Blood Pressure [Left Arm] 127/65 Blood Pressure 124/59 O2 Sat by Pulse Oximetry 94 Intake and Output: Intake & Output 06/15/20 06/16/20 06/17/20 06/18/20 23:59 23:59 23:59 23:59 Intake Total 963 / 963 2522 / 2522 4518 / 4518 1560 / 1560 Balance 963 / 963 2522 / 2522 4518 / 4518 1560 / 1560 Physical Exam Oriented: Normal Eyes: Normal Ear: Normal Nose: Normal Throat: Normal Respiratory: Diminished Cardiovascular: Normal : Normal Auscultation: Bowel Sounds: Normal Tenderness: Normal Skin: Normal Musculoskeletal: Normal Psychiatric: Normal Mood Description: Calm and Appropriate Affect: Normal Speech Pattern: Clear and Appropriate Laboratory and Diagnostics Result Diagrams: 06/18/20 04:15 06/18/20 04:15 Labs: Laboratory WBC 6.6 X10^3/uL (3.6-10.0) 06/18/20 04:15 RBC 4.23 X10^6/uL (3.5-5.4) 06/18/20 04:15 Hgb 11.7 g/dL (12.0-16.0) L 06/18/20 04:15 Hct 36.1 % (36.0-47.0) 06/18/20 04:15 MCV 85.2 fL (80.0-100.0) 06/18/20 04:15 MCH 27.7 pg (27.0-34.0) 06/18/20 04:15 MCHC 32.5 g/dL (33.0-35.0) L 06/18/20 04:15 RDW 13.5 % (11.6-16.5) 06/18/20 04:15 Plt Count 161 X10^3/uL (150.0-450.0) 06/18/20 04:15 Plt Count Comment Adequate (ADEQUATE) 06/18/20 04:15 MPV 10.8 fL (7.4-11.0) 06/18/20 04:15 Neut % (Auto) 86.7 % (42.0-75.0) H 06/18/20 04:15 Lymph % (Auto) 5.8 % (21.0-51.0) L 06/18/20 04:15 [place] % (Auto) 7.4 % (0.0-13.0) 06/18/20 04:15 Eos % (Auto) 0.0 % (0.9-2.9) L 06/18/20 04:15 Baso % (Auto) 0.1 % (0.2-1.0) L 06/18/20 04:15 Neut # (Auto) 5.7 x10^3/uL (2.2-4.8) H 06/18/20 04:15 Lymph # (Auto) 0.4 X10^3/uL (1.3-2.9) L 06/18/20 04:15 [place] # (Auto) 0.5 x10^3/uL (0.3-0.8) 06/18/20 04:15 Eos # (Auto) 0.0 x10^3/uL (0.0-0.2) 06/18/20 04:15 Baso # (Auto) 0.0 X10^3/uL (0.0-0.1) 06/18/20 04:15 Absolute Nucleated RBC 0.0 /100WBC 06/18/20 04:15 Total Counted 50 06/16/20 04:15 Neutrophils % (Manual) 84 % (39-76) H 06/16/20 04:15 Lymphocytes % (Manual) 8 % (13-43) L 06/16/20 04:15 Monocytes % (Manual) 8 % (4-9) 06/16/20 04:15 Giant Platelets Few 06/18/20 04:15 Plt Morphology Comment Abnormal (NORMAL) A 06/18/20 04:15 RBC Morphology Normal (NORMAL) 06/18/20 04:15 D-Dimer 0.86 ug/ml (0.0-0.57) H* 06/17/20 04:15 Sample Site Lb 06/15/20 14:53 ABG pH 7.490 (7.35-7.45) H 06/15/20 14:53 ABG pCO2 30.0 mmHg (35.0-45.0) L 06/15/20 14:53 ABG pO2 62.0 mmHg (80.0-100.0) L 06/15/20 14:53 ABG HCO3 22.9 mmol/L (22-26) 06/15/20 14:53 ABG O2 Saturation 93.0 % (90-100) 06/15/20 14:53 ABG Base Excess 0.3 mmol/L (-2.0-2.0) 06/15/20 14:53 Partha Test Na 06/15/20 14:53 A-a Gradient 50.0 mmHg 06/15/20 14:53 FiO2 21.0 06/15/20 14:53 Blood Gas Comments Dayana well/gmb/ahw 06/15/20 14:53 Sodium 140 mmol/L (136-145) 06/18/20 04:15 Corrected Sodium 143 mmol/L (136-145) 06/18/20 04:15 Potassium 3.4 mmol/L (3.5-5.1) L 06/18/20 04:15 Chloride 105 mmol/L (98-107) 06/18/20 04:15 Carbon Dioxide 24.2 mmol/L (21-32) 06/18/20 04:15 BUN 15 mg/dL (7-18) 06/18/20 04:15 Creatinine 0.81 mg/dL (0.55-1.02) 06/18/20 04:15 Est GFR (MDRD) Af Amer > 60 (>60) 06/18/20 04:15 Est GFR (MDRD) Non-Af > 60 (>60) 06/18/20 04:15 Glucose 235 mg/dL (65-99) H 06/18/20 04:15 Calcium 8.8 mg/dL (8.5-10.1) 06/18/20 04:15 Corrected Calcium 10.0 mg/dL (8.5-10.1) 06/18/20 04:15 Magnesium 1.8 mg/dL (1.7-2.9) 06/18/20 04:15 Total Bilirubin 0.40 mg/dL (0.2-1.0) 06/18/20 04:15 AST 29 Units/L (15-37) 06/18/20 04:15 ALT 45 Units/L (12-78) 06/18/20 04:15 Alkaline Phosphatase 61 Units/L (46-116) 06/18/20 04:15 Troponin I < 0.02 ng/mL (0-1.5) 06/15/20 14:28 C-Reactive Protein 13.50 mg/L (0-3.0) H 06/18/20 04:15 Total Protein 6.2 g/dL (6.4-8.2) L 06/18/20 04:15 Albumin 2.5 g/dL (3.4-5.0) L 06/18/20 04:15 Globulin 3.7 g/dL (2.5-4.5) 06/18/20 04:15 Albumin/Globulin Ratio 0.7 Ratio (1.1-2.1) L 06/18/20 04:15 SARS CoV-2 RNA Rapid RENNY Positive (NEGATIVE) A 06/15/20 11:48 Plan (1) Pneumonia due to COVID-19 virus: Status: Acute Plan: IVF, Remdesivir, Solumedrol, Bronchodilators, Antibiotics, supplemental O2. (2) Dehydration: Status: Acute
[2020-06-18] MEDS: NS 1000 ML 1,000 ML IV SCH (15:49)
[2020-06-18] MEDS: MAGNESIUM SULFATE 1 GRAM/100 mL PREMIX 1 GM/100 ML BAG IV PRN ×2 (21:49→23:09)
[2020-06-19] MEDS: DUONEB 0.5 MG/3 MG (3 mL) NEB SCH ×2 (00:30→06:17)
[2020-06-19] MEDS: ASCORBIC ACID INJ MULTI-DOSE VIAL 1,500 MG in NS 100 ML IV 100 ML IV SCH ×2 (04:24→08:10)
[2020-06-19 05:10] LABS: BASOPHILS % (AUTO) 0.4 % (0.2-1.0); HEMATOCRIT 36.5 % (36.0-47.0); HEMOGLOBIN 11.9 g/dL (12.0-16.0); LYMPHOCYTES # (AUTO) 0.5 X10^3/uL (1.3-2.9); LYMPHOCYTES % (AUTO) 6.8 % (21.0-51.0); MEAN CORPUSCULAR HEMOGLOBIN 27.7 pg (27.0-34.0); MEAN CORPUSCULAR HGB CONC 32.7 g/dL (33.0-35.0); MEAN CORPUSCULAR VOLUME 84.9 fL (80.0-100.0); MEAN PLATELET VOLUME 10.5 fL (7.4-11.0); MONOCYTES # (AUTO) 0.6 x10^3/uL (0.3-0.8); MONOCYTES % (AUTO) 8.8 % (0.0-13.0); NEUTROPHILS # (AUTO) 5.9 x10^3/uL (2.2-4.8); PLATELET COUNT 171 X10^3/uL (150.0-450.0); RED CELL DISTRIBUTION WIDTH 13.8 % (11.6-16.5)
[2020-06-19 05:31] LABS: ALANINE AMINOTRANSFERASE 43 Units/L (12-78); ALBUMIN 2.4 g/dL (3.4-5.0); ALKALINE PHOSPHATASE 62 Units/L (46-116); ASPARTATE AMINO TRANSFERASE 26 Units/L (15-37); BLOOD UREA NITROGEN 17 mg/dL (7-18); CALCIUM 8.3 mg/dL (8.5-10.1); CARBON DIOXIDE 23.5 mmol/L (21-32); CHLORIDE 107 mmol/L (98-107); COR CA(FOR HYPOALB) 9.6 mg/dL (8.5-10.1); COR NA(FOR HYPERGLY) 145 mmol/L (136-145); CREATININE 0.91 mg/dL (0.55-1.02); MAGNESIUM 2.5 mg/dL (1.7-2.9); SODIUM 142 mmol/L (136-145); eGFR NON BLACK RACES > 60 (>60)
[2020-06-19 06:04] LABS: PLATELET MORPHOLOGY COMMENT NORMAL (NORMAL)
--- NOTE | 2020-06-19 08:04 | W.DIS.FURT ---
Summary of Discharge Discharge Summary of Date Date of Exam: 06/19/20 Admission Date Date of Admission: 06/15/20 Admission Diagnosis Hospital Course: Pt is a 64 year old female with no past medical history admitted for COVID-19 pneumonia (positive 06/15) and hypoxia. Pt's treatment course included: Remdesivir, Solumedrol, Antibiotics: Doxycycline, Tricor, Bronchodilators, immune supporting supplements, supplemental O2, I/S, Respiratory therapy consult, Pneumonia protocol. Pt responded well to treatments. Labs/imaging: Wbc 7.0, Hgb 11.9, Plt 171, Na 142, K 3.6, Cr 0.91, Glucose 223, CRP 6.5. Pt had oxygen weaned. Ambulatory walk test requiring 2L O2, home oxygen set up. Rx prednisone x 5 days. Pt discharged in stable condition with instructions to follow up with pcp in 3-5 days. Vital Signs: Vital Signs (72 hours) 06/16/20 12:00 06/16/20 16:00 06/16/20 19:00 Temperature 98.4 F 97.9 F Pulse Rate Pulse Rate [Apical] 101 H 94 H 98 H Respiratory Rate 30 H 25 H 32 H Blood Pressure [Left Arm] Blood Pressure [Right Arm] 118/63 97/50 O2 Sat by Pulse Oximetry 88 L 92 L 93 L 06/16/20 20:00 06/16/20 20:10 06/17/20 00:00 Temperature 98.1 F 98.3 F Pulse Rate 103 H Pulse Rate [Apical] 104 H 102 H Respiratory Rate 32 H 36 H Blood Pressure [Left Arm] 116/67 127/65 Blood Pressure [Right Arm] O2 Sat by Pulse Oximetry 93 L 93 L 92 L 06/17/20 04:00 06/17/20 08:00 06/17/20 12:00 Temperature 97.9 F 98.1 F 98.0 F Pulse Rate Pulse Rate [Apical] 95 H 102 H 102 H Respiratory Rate 28 H 22 22 Blood Pressure [Left Arm] Blood Pressure [Right Arm] 133/74 119/62 133/69 O2 Sat by Pulse Oximetry 94 L 95 91 L 06/17/20 15:54 06/17/20 16:50 06/17/20 20:00 Temperature 97.0 F L 98.1 F 97.6 F Pulse Rate Pulse Rate [Apical] 87 100 H Respiratory Rate 18 34 H Blood Pressure [Left Arm] Blood Pressure [Right Arm] 132/73 134/69 O2 Sat by Pulse Oximetry 93 L 95 06/17/20 21:21 06/18/20 00:00 06/18/20 00:30 Temperature 98.1 F Pulse Rate 102 H 98 H Pulse Rate [Apical] 89 Respiratory Rate 16 Blood Pressure [Left Arm] Blood Pressure [Right Arm] 132/73 O2 Sat by Pulse Oximetry 99 94 L 98 06/18/20 04:00 06/18/20 06:25 06/18/20 08:00 Temperature 98.2 F 97.7 F Pulse Rate 96 H Pulse Rate [Apical] 88 116 H Respiratory Rate 29 H 38 H Blood Pressure [Left Arm] Blood Pressure [Right Arm] 129/71 163/76 O2 Sat by Pulse Oximetry 92 L 98 94 L 06/18/20 09:07 06/18/20 12:00 06/18/20 12:58 Temperature 98.6 F Pulse Rate 107 H 111 H Pulse Rate [Apical] 104 H Respiratory Rate 19 Blood Pressure [Left Arm] Blood Pressure [Right Arm] 151/73 O2 Sat by Pulse Oximetry 94 L 93 L 93 L 06/18/20 16:00 06/18/20 18:07 06/18/20 20:00 Temperature 98.2 F 98.0 F Pulse Rate 114 H Pulse Rate [Apical] 104 H 94 H Respiratory Rate 29 H 30 H Blood Pressure [Left Arm] Blood Pressure [Right Arm] 133/70 O2 Sat by Pulse Oximetry 93 L 94 L 95 06/18/20 20:51 06/19/20 00:00 06/19/20 04:00 Temperature 98.2 F 97.8 F Pulse Rate 96 H Pulse Rate [Apical] 92 H 87 Respiratory Rate 28 H 25 H Blood Pressure [Left Arm] Blood Pressure [Right Arm] 145/78 140/74 O2 Sat by Pulse Oximetry 94 L 93 L 93 L Labs: Laboratory Last Values WBC 7.0 X10^3/uL (3.6-10.0) 06/19/20 04:10 RBC 4.30 X10^6/uL (3.5-5.4) 06/19/20 04:10 Hgb 11.9 g/dL (12.0-16.0) L 06/19/20 04:10 Hct 36.5 % (36.0-47.0) 06/19/20 04:10 MCV 84.9 fL (80.0-100.0) 06/19/20 04:10 MCH 27.7 pg (27.0-34.0) 06/19/20 04:10 MCHC 32.7 g/dL (33.0-35.0) L 06/19/20 04:10 RDW 13.8 % (11.6-16.5) 06/19/20 04:10 Plt Count 171 X10^3/uL (150.0-450.0) 06/19/20 04:10 Plt Count Comment Adequate (ADEQUATE) 06/19/20 04:10 MPV 10.5 fL (7.4-11.0) 06/19/20 04:10 Neut % (Auto) 84.0 % (42.0-75.0) H 06/19/20 04:10 Lymph % (Auto) 6.8 % (21.0-51.0) L 06/19/20 04:10 [place] % (Auto) 8.8 % (0.0-13.0) 06/19/20 04:10 Eos % (Auto) 0.0 % (0.9-2.9) L 06/19/20 04:10 Baso % (Auto) 0.4 % (0.2-1.0) 06/19/20 04:10 Neut # (Auto) 5.9 x10^3/uL (2.2-4.8) H 06/19/20 04:10 Lymph # (Auto) 0.5 X10^3/uL (1.3-2.9) L 06/19/20 04:10 [place] # (Auto) 0.6 x10^3/uL (0.3-0.8) 06/19/20 04:10 Eos # (Auto) 0.0 x10^3/uL (0.0-0.2) 06/19/20 04:10 Baso # (Auto) 0.0 X10^3/uL (0.0-0.1) 06/19/20 04:10 Absolute Nucleated RBC 0.1 /100WBC 06/19/20 04:10 Total Counted 50 06/16/20 04:15 Neutrophils % (Manual) 84 % (39-76) H 06/16/20 04:15 Lymphocytes % (Manual) 8 % (13-43) L 06/16/20 04:15 Monocytes % (Manual) 8 % (4-9) 06/16/20 04:15 Giant Platelets Few 06/18/20 04:15 Plt Morphology Comment Normal (NORMAL) 06/19/20 04:10 RBC Morphology Normal (NORMAL) 06/19/20 04:10 D-Dimer 0.86 ug/ml (0.0-0.57) H* 06/17/20 04:15 Sample Site Lb 06/15/20 14:53 ABG pH 7.490 (7.35-7.45) H 06/15/20 14:53 ABG pCO2 30.0 mmHg (35.0-45.0) L 06/15/20 14:53 ABG pO2 62.0 mmHg (80.0-100.0) L 06/15/20 14:53 ABG HCO3 22.9 mmol/L (22-26) 06/15/20 14:53 ABG O2 Saturation 93.0 % (90-100) 06/15/20 14:53 ABG Base Excess 0.3 mmol/L (-2.0-2.0) 06/15/20 14:53 Partha Test Na 06/15/20 14:53 A-a Gradient 50.0 mmHg 06/15/20 14:53 FiO2 21.0 06/15/20 14:53 Blood Gas Comments Dayana well/gmb/ahw 06/15/20 14:53 Sodium 142 mmol/L (136-145) 06/19/20 04:10 Corrected Sodium 145 mmol/L (136-145) 06/19/20 04:10 Potassium 3.6 mmol/L (3.5-5.1) 06/19/20 04:10 Chloride 107 mmol/L (98-107) 06/19/20 04:10 Carbon Dioxide 23.5 mmol/L (21-32) 06/19/20 04:10 BUN 17 mg/dL (7-18) 06/19/20 04:10 Creatinine 0.91 mg/dL (0.55-1.02) 06/19/20 04:10 Est GFR (MDRD) Af Amer > 60 (>60) 06/19/20 04:10 Est GFR (MDRD) Non-Af > 60 (>60) 06/19/20 04:10 Glucose 223 mg/dL (65-99) H 06/19/20 04:10 Calcium 8.3 mg/dL (8.5-10.1) L 06/19/20 04:10 Corrected Calcium 9.6 mg/dL (8.5-10.1) 06/19/20 04:10 Magnesium 2.5 mg/dL (1.7-2.9) 06/19/20 04:10 Total Bilirubin 0.40 mg/dL (0.2-1.0) 06/19/20 04:10 AST 26 Units/L (15-37) 06/19/20 04:10 ALT 43 Units/L (12-78) 06/19/20 04:10 Alkaline Phosphatase 62 Units/L (46-116) 06/19/20 04:10 Troponin I < 0.02 ng/mL (0-1.5) 06/15/20 14:28 C-Reactive Protein 6.50 mg/L (0-3.0) H 06/19/20 04:10 Total Protein 6.0 g/dL (6.4-8.2) L 06/19/20 04:10 Albumin 2.4 g/dL (3.4-5.0) L 06/19/20 04:10 Globulin 3.6 g/dL (2.5-4.5) 06/19/20 04:10 Albumin/Globulin Ratio 0.7 Ratio (1.1-2.1) L 06/19/20 04:10 SARS CoV-2 RNA Rapid RENNY Positive (NEGATIVE) A 06/15/20 11:48 Reason For Visit: COVID PNEUMONIA Discharge Date Discharge Date: 06/19/20 Discharge Diagnosis All Active Problems (Updated 06/16/20 @ 09:45 by Surinder Cyr) Dehydration (Acute) Pneumonia due to COVID-19 virus (Acute) GERD (gastroesophageal reflux disease) (Chronic) PUD (peptic ulcer disease) (Chronic) History of GI bleed (Chronic) Pneumonia (Acute) Plan of Treatment: Continue with present treatment and follow up plan. Pt is to keep follow up appointment as instructed and take medications as ordered. Discharge Medications Discharge Medications: iodine Adverse Reaction (Verified 06/16/20 20:24) CONTINUE taking the following medications NK 06/15/20 [History] New Prescriptions prednisone See Rx Instructions .ROUTE .COMPLEX 5 Days #8 tab 06/19/20 [Rx] Follow up and Referral Follow Up: 1 Week Discharge Disposition Discharge Disposition: Home Discharge Condition: Stable Discharge Plan Discharge Plan Hospital Course: Pt is a 64 year old female with no past medical history admitted for COVID-19 pneumonia (positive 06/15) and hypoxia. Pt's treatment course included: Remdesivir, Solumedrol, Antibiotics: Doxycycline, Tricor, Bronchodilators, immune supporting supplements, supplemental O2, I/S, Respiratory therapy consult, Pneumonia protocol. Pt responded well to treatments. Labs/imaging: Wbc 7.0, Hgb 11.9, Plt 171, Na 142, K 3.6, Cr 0.91, Glucose 223, CRP 6.5. Pt had oxygen weaned. Ambulatory walk test requiring 2L O2, home oxygen set up. Rx prednisone x 5 days. Pt discharged in stable condition with instructions to follow up with pcp in 3-5 days. Patient Disposition: HOME, SELF-CARE Condition: Stable Health Concerns: Post Hospitalization: new medications and changes needed to prevent readmission or further decline. Pt educated and given instructions on all concerns. Care Plan Goals: Problem: Respiratory Complications Goal: Improved Uncomplicated Respiratory Status Instructions: Follow provided instructions. Follow up with primary physician as directed. Contact primary care physician or report to the closest Emergency Room if condition worsens. Plan of Treatment: Continue with present treatment and follow up plan. Pt is to keep follow up appointment as instructed and take medications as ordered. Prescriptions: New prednisone 20 mg tablet See Rx Instructions .ROUTE .COMPLEX 5 Days Qty: 8 RF: 0 Follow ups/Referrals Follow ups/Referrals: [facility] [Other] SHERI ROYAL [Primary Care Provider] - 06/26/20 9:30 am (TeleMed Appointment) Instructions Instructions: Fall Prevention in the Home, Adult, [id number], Incentive Spirometer, Viral Respiratory Infection, [id number], Dehydration, Adult, [id number], Home Oxygen Use, Adult, Hand Washing, [id number], Rehydration, Adult, Droplet Precautions, [id number], Contact Precautions, [id number], Community-Acquired Pneumonia, Adult, [id number] Stand Alone Forms: Excuse From Work, Precautions for COVID19, Patient Portal, Social Distancing
[2020-06-19] MEDS: SOLU-Medrol 125 MG VIAL IVP SCH (08:14)
[2020-06-19] MEDS: LOVENOX INJ 30 MG SYR SC SCH (08:15)
[2020-06-19] MEDS: IVERMECTIN PO SCH (08:17)
[2020-06-19] MEDS: ZINC SULFATE PO SCH (08:17)
[2020-06-19] MEDS: TRICOR TAB 160 MG PO SCH (08:17)
[2020-06-19] MEDS: VITAMIN A PO SCH (08:18)
[2020-06-19] MEDS: REMDESIVIR 100 MG in NS 250 ML IV 250 ML IV SCH (08:18)
[2020-06-19] MEDS: VITAMIN D3 125 mcg (5,000 UNITS) PO SCH (08:18)
[2020-06-19] MEDS: VIBRAMYCIN PO SCH (08:18)
[2020-06-19] MEDS: PULMICORT NEB TX 0.5 MG NEB SCH (09:06)
[2020-06-19 10:49] VITALS: BP 137/69
== END 2020-06-19 14:00 | disposition home or self-care (01) | DRG 177 ==
LOC: LAB 12:17 → ICU 12:17
PROVIDERS: ADMIT Family Medicine; ATTEND Family Medicine
DX: J12.82 Pneumonia due to coronavirus disease 2019; R06.02 Shortness of breath; R79.82 Elevated C-reactive protein (CRP); K21.9 Gastro-esophageal reflux disease without esophagitis; E86.0 Dehydration; U07.1 COVID-19; I87.2 Venous insufficiency (chronic) (peripheral); I48.92 Unspecified atrial flutter